=== PATIENT | male | born 1935 | race Caucasian/White ===

== ENCOUNTER 2017-04-28 10:44 | Emergency (ER) | payer OTHER ==
[2017-04-28] MEDS ORDERED: ALBUTEROL SULFATE/IPRATROPIUM 3 ML NEBU IH ONE ×2 (11:06→11:34)
[2017-04-28 11:28] LABS: Hematocrit 33.1 % (42.0-52.0); Hemoglobin 10.2 gm/dL (13.5-18.0); Mean Cell Volume 95.1 fl (78-100); Mean Corpuscular Hemoglobin 29.3 pg (27-31); Mean Corpuscular Hgb Conc 30.8 g/dl (32-36); Mean Platelet Volume 9.5 fl (6.0-9.5); Platelet Count 167 K/mm3 (150-450); Red Blood Count 3.48 M/mm3 (4.7-6.0); White Blood Count 6.3 K/mm3 (4.0-10.5)
[2017-04-28 11:33] LABS: Total Cells Counted 100
[2017-04-28 11:36] LABS: Prothrombin Time (Patient) 41.5 Seconds (9.4-11.4)
[2017-04-28 11:37] LABS: INR 3.99 INR (0.90-1.10)
--- OUTSIDE RECORDS SUMMARY | 2017-04-28 11:37 | XMS REPORT | Continuity of Care Document ---
:1935 Author Organization [facility] ([facility]) Address [address] [place] [address] Phone [phone] Care Team Providers Name Role Phone John Pack Primary Care Provider [phone] Source Comments This disclosure is being made pursuant to the Care Everywhere program, applicable federal and state laws, and may not contain all informaitonavailable regarding this patient.[facility] ([facility]) Active Allergies and Adverse Reactions No Known Allergies Current Medications Prescription Sig. Disp. Refills Start Date End Date Status metFORMIN 500 mg tablet Take 1,000 mg by Active mouth 2 times daily with meals. glyBURIDE 5 mg tablet Take 10 mg by mouth Active 2 times daily with meals. levothyroxine 75 mcg Take 75 mcg by Active tablet mouth at bedtime. doxazosin 2 mg tablet Take 6 mg by mouth Active at bedtime. clopidogrel 75 mg tablet Take 1 Tab by mouth 30 Tab 11 01/01/2015 Active daily. Indications: Aortic stenosis s/p TAVR miconazole 2 % powder apply topically 2 Active times daily. sennosides 8.6 mg tablet Take 1 tablet by Active mouth 2 times daily as needed. acetaminophen 325 mg Take 650 mg by Active tablet mouth every 4 hours as needed Stop 02/13/16 . docusate 100 mg capsule Take 1 capsule (100 02/11/2016 Active mg total) by mouth 2 times daily as needed for Constipation. warfarin 5 mg tablet Take 5 mg by mouth Active daily. Active Problems Patient Care Coordination Note GOALS OF CARE AND TREATMENT PREFERENCES Diagnosis: Symptomatic bradycardia Prognosis: Fair Goal(s) of Care: cure, live longer and maintenance/quality of life/ independence, "not be a vegetable," "not be a burden on anyone" Is the patient an inpatient? Yes. How did the team arrive at the current code status? Discussed with patient Code status is: Partial: CPR OK, no intubation Additional remarks: On admission had IPOST indicating he wanted CPR but also comfort cares only. Discussed with him further and he would like all treatment "up to a point" but mentioned "not wanting to be a vegetab le" and "not being a burden." Clarified goals and he would like CPR, intubation (for limited periods of time), ICU care, and artificial nutrition ( for limited amounts of time). An updated IPOST was completed and scanned on 2015-02-17, indicating he wishes CPR to be attempted, that he would like full treatment, and that he would like limited trials of artificial nutrition. 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) 12/29/2014 Ventral hernia 07/17/2014 Constipation 07/17/2014 Type 2 diabetes mellitus 10/31/2012 BPH (benign prostatic hypertrophy) 10/31/2012 Atrial fibrillation 10/31/2012 Umbilical hernia 10/31/2012 HLD (hyperlipidemia) 10/31/2012 Hypothyroidism 10/31/2012 Neuropathy 10/31/2012 Resolved Problems Problem Noted Date Resolved Date Junctional escape rhythm 02/15/2015 02/17/2015 Aortic valve stenosis 12/29/2014 01/01/2015 Malaise 12/29/2014 01/01/2015 Fatigue 12/29/2014 01/01/2015 Aortic stenosis, severe 07/14/2014 01/01/2015 Hypoxia 07/13/2014 01/01/2015 Pneumonia, organism unspecified 07/11/2014 07/17/2014 Heart murmur 11/01/2012 01/01/2015 Immunizations Name Dates Previously Given Next Due Pneumococcal Polysaccharide, PPSV23 (Pneumovax 23) 02/05/2009,01/16/2009 Social History Tobacco Use Types Packs/Day Years Used Date Never Smoker Smokeless Tobacco: Never Used Alcohol Use Drinks/Week oz/Week Comments No 0 Standard drinks or equivalent 0.0 None. Incarcerated since ~2004 Last Filed Vital Signs Vital Sign Reading Time Taken Blood Pressure 150/66 09/28/2016 1:25 PM CHECK SCALER Pulse 58 09/28/2016 11:12 AM CHECK SCALER Temperature 36.3 C (97.3 F) 09/28/2016 1:10 PM CHECK SCALER Respiratory Rate 16 09/28/2016 11:12 AM CHECK SCALER Height 1.778 m (5' 10") 05/20/2015 8:09 AM CDT Weight 110 kg (242 lb 8.1 oz) 09/28/2016 11:12 AM CHECK SCALER Body Mass Index 34.8 09/28/2016 11:12 AM CHECK SCALER Oxygen Saturation 99% 09/28/2016 1:25 PM CHECK SCALER Plan of Care Health Maintenance Due Date Last Done Comments Hepatitis B Vaccine (1 of 3 - 1935 Primary Series) Tdap Vaccine 1946 DIABETIC: Microalbumin 1953 Td Vaccine 1953 Zoster Vaccine 1994 Pneumococcal Vaccine (2 of 2 02/05/2010 02/05/2009, - PCV13) 01/16/2009 DIABETIC: Foot Exam 11/27/2012 Diabetic: Hdl 07/13/2015 07/13/2014 Diabetic: Ldl 07/13/2015 07/13/2014 DIABETIC: Triglycerides 07/13/2015 07/13/2014 DIABETIC: Cholesterol 12/08/2015 12/08/2014, 07/13/2014 Influenza Vaccine: Seasonal 06/19/2016 (#1) DIABETIC: Hemoglobin A1C 08/11/2016 02/09/2016, Additional history exists 12/08/2014, 07/11/2014 DIABETIC: Retinal Eye Exam 08/09/2017 08/09/2016 Colonoscopy 06/10/2023 06/10/2013 Results from Last 3 Months Not on file
[2017-04-28 11:46] LABS: Albumin * 3.2 gm/dl (3.4-5.0); Anion Gap 9.4 mmol/L (6.8-13.8); Bilirubin, Total 0.7 mg/dL (0.0-1.1); Calcium * 8.7 mg/dL (7.9-10.9); Carbon Dioxide 34.6 mmol/L (24-32.6); Lymphocyte 20 % (20-51); Monocyte 13 % (0-9); Neutrophil 67 % (42-75); Neutrophil # 4.2 K/mm3 (1.3-6.0); Total Protein 6.9 gm/dL (6.2-8.2); Troponin I 0.024 ng/ml (0.00-0.10)
[2017-04-28 11:47] LABS: Hypochromia 1+; Platelet Estimate Normal (NORMAL)
[2017-04-28 11:48] LABS: Anisocytosis 1+
[2017-04-28] MEDS ORDERED: FUROSEMIDE 10 MG/ML VIAL IV ONE (11:51)
[2017-04-28] MEDS ORDERED: METHYLPREDNISOLONE SOD SUCC/PF 40 MG/ML VIAL IV ONE (12:25)
[2017-04-28] MEDS ORDERED: FUROSEMIDE 10 MG/ML VIAL ONE (12:34)
[2017-04-28] MEDS ORDERED: METHYLPREDNISOLONE SOD SUCC/PF 40 MG/ML VIAL ONE (12:34)
--- NOTE | 2017-04-28 13:04 | ERNOTE ---
Dyspnea - Date Date of Service: 04/28/17 - General Presenting Symptoms: shortness of breath Time Seen by Provider: 04/28/17 11:00 Exam Limitations: clinical condition - Immun/Allergies/Home Medications Allergies/Adverse Reactions: Allergies No Known Allergies Allergy (Verified 04/28/17 10:53) Home Medications: HOME MEDICATIONS Clopidogrel Bisulfate [Plavix] 75 mg PO DAILY 04/28/17 [Last Taken Unknown] Docusate Sodium [Dok] 100 mg PO BID 04/28/17 [Last Taken Unknown] Doxazosin Mesylate [Cardura] 6 mg PO HS 04/28/17 [Last Taken Unknown] Insulin Glargine,Hum.rec.anlog [Basaglar Kwikpen U-100] 15 unit SQ HS 04/28/17 [ Last Taken Unknown] Levothyroxine Sodium [Synthroid] 75 mcg PO DAILY 04/28/17 [Last Taken Unknown] Polyvinyl Alcohol [Artificial Tears] 1 drop OP PRN 04/28/17 [Last Taken Unknown] Sennosides [Senna Lax] 8.6 mg PO BID 04/28/17 [Last Taken Unknown] Warfarin Sodium [Coumadin] 5 mg PO DAILY 04/28/17 [Last Taken Unknown] glyBURIDE [Micronase] 5 mg PO BIDAC 04/28/17 [Last Taken Unknown] metFORMIN HCL [Fortamet] 1,000 mg PO BID 04/28/17 [Last Taken Unknown] - History of Present Illness Narrative: Patient [facility] from the [facility]al facility for SOB and lethargy. He cannot really provide any Hx. Will answer some yes and no questions. By report he was SOB and lethargic today with RA sat 84%. placed in O2 and sent here. No known fever. He shakes his head no to having pain but otherwise Hx limited. No clear onset of Sx. Treatment DOCUMENT MANAGER: oxygen Initiating event: Reports: unknown Frequency of episodes: Reports: other - unknown Modifying Factors - (Improves): Reports: nothing Modifying Factors (Worsens): Reports: nothing Associated Symptoms-Dyspnea: Reports: other - unknown. Denies pain but questioning not otherwise revealing d/t his condition Prior Treatment: Denies: recently seen Review of Systems - Narrative Narrative: Unobtainable d/t patient condition - Patient's Past Medical History Patient History - Medical: Other - Medical condition sheet present with patient reviewed. A fib, bronchitis , DM, pacemaker or note. - Social History Living Situations: other Smoking Status: Former smoker Have you smoked in the past 12 months: No Physical Exam - Physical Exam General Appearance: Present: other - somnolent, will arouse to touch but goes back to sleep and really doesn't answer questions, sometins will nod his head to question. No active distress. Eye Exam: Normal inspection: bilateral Ears, Nose, Throat: Present: other - no foreighbodies. No nasal flaring. Neck: Present: other - trachea midline Respiratory: Present: other - few faint wheezes, does not take deep breaths Cardiovascular/Chest: Present: regular rate, rhythm Gastrointestinal/Abdominal: Present: normal bowel sounds, nontender, soft Back Exam: Present: other - needs help to sit forward.. Absent: CVA tenderness (R), CVA tenderness (L) Neurological Exam: Present: other - difficult exam. Somnolent. No clear focal deficits but has generalized weakness Skin Exam: Absent: skin rash ED Progress - Results and Orders Patient's Lab Results:: I have reviewed the patient's lab results. - Vital Signs Patient's Vital Signs:: I have reviewed the patient's vital signs. Vital Signs: Vital Signs 04/28/17 04/28/17 04/28/17 10:48 11:01 11:26 Temperature 37.1 C Pulse Rate 75 63 75 Respiratory 20 31 H Rate Blood Pressure 146/66 141/67 O2 Sat by Pulse 98 92 Oximetry 04/28/17 04/28/17 04/28/17 11:40 11:41 11:51 Temperature Pulse Rate 72 74 72 Respiratory 31 H 27 H 30 H Rate Blood Pressure 135/64 O2 Sat by Pulse 97 98 97 Oximetry 04/28/17 04/28/17 12:41 12:48 Temperature Pulse Rate 75 75 Respiratory 20 Rate Blood Pressure 116/38 O2 Sat by Pulse 95 Oximetry - EKG EKG read: Interp. by me EKG Comments: A fib, rate 73. RBBB. No clear evidence of STEMI. - X-Ray X-Ray #1 X-Ray: chest Interpretation: Interp. by me X-ray Comments: NO active radiology readings available at this time as it is a weekend. Mild vascular congestion. Likely Right sided infiltrate. - Progress/Reassessment Chief Complaint: Dyspnea Progress Note-Subjective: 04/28/17 13:00 IV started. Placed on BiPAP for the hypercarbic resp. failure. IV steroids, IV ABx, IV lasix given. Blood Cx obtained. By protocol he needs to be transferred to [facility] by report. I called [facility], Dr Fernández accepts patient. On BiPap he will still arouse about at the level which he presented at. As he will be leaving by ambulance BUDDY I will hold on a repeat ABG as he will be in transfer. At this time I do not feel he needs intubation for the transfer. Formal EMTALA paperwork filled out. Departure Clinical Impression: Hypercarbia, Respiratory failure with hypercapnia - Departure Disposition: [facility] Condition: Serious
[2017-04-28 14:33] VITALS: BP 185/65
== END 2017-04-28 14:26 | disposition short-term general hospital (02) ==
LOC: ER 10:44
DX: J96.92 Respiratory failure, unspecified with hypercapnia (principal); I48.91 Unspecified atrial fibrillation; Z79.01 Long term (current) use of anticoagulants; E11.9 Type 2 diabetes mellitus without complications; Z95.0 Presence of cardiac pacemaker